=== PATIENT | male | born 1960 | race Caucasian/White ===

== ENCOUNTER 2020-12-31 05:07 | Inpatient (IN) | payer MEDICAID, MEDICARE ==
[~2020-12-31] VITALS: Ht 172.7 cm; Wt 54.5 kg
[~2020-12-31 05:07] MED LIST: ASPI-1450 PO; CHOL100018 PO; ENOX30DI5 SQ; IBUP-2759 PO; OXYC1TAB6 PO; TRAM50TA4 PO
[2020-12-31] MEDS ORDERED: KETOROLAC TROMETHAMINE 30 MG/ML VIAL IVP ONE (06:30)
[2020-12-31] MEDS ORDERED: MORPHINE SULFATE 2 MG/ML SYRINGE IVP ONE (06:30)
[2020-12-31] MEDS ORDERED: LIDOCAINE 5% TRANSDERMAL PATCH TD ONE (06:30)
[2020-12-31] MEDS ORDERED: IOVERSOL 350 MG/ML 100 ML VIAL ONE (06:44)
[2020-12-31] MEDS ORDERED: SODIUM CHLORIDE 0.9% 100 ML ONE (06:44)
[2020-12-31 06:54] LABS: BASOPHILS % (AUTO) 0.8 % (0.0-2.0); EOSINOPHILS % (AUTO) 3.9 % (1.0-6.0); HEMATOCRIT 33.6 % (41-53); HEMOGLOBIN 11.4 g/dL (13.5-17.5); LYMPHOCYTES # (AUTO) 0.7 K/uL (1.0-4.8); LYMPHOCYTES % (AUTO) 7.7 % (22.0-44.0); MEAN CORPUSCULAR HEMOGLOBIN 33.5 pg (26.0-34.0); MEAN CORPUSCULAR HGB CONC 33.9 G/dL (31.0-37.0); MEAN CORPUSCULAR VOLUME 99 fL (80-100); MONOCYTES # (AUTO) 0.8 K/uL (0.1-1.0); MONOCYTES % (AUTO) 8.3 % (2.0-9.0); NEUTROPHILS # (AUTO) 7.7 K/uL (1.8-7.7); NEUTROPHILS % (AUTO) 79.3 % (40.0-70.0); PLATELET COUNT (AUTO) 266 K/uL (150-450)
[2020-12-31 07:09] LABS: ALBUMIN 3.6 g/dL (3.4-5.0); BILIRUBIN,TOTAL 0.6 mg/dL (0.1-1.0); CREATININE 1.25 mg/dL (0.60-1.30); POTASSIUM 4.5 mmol/L (3.5-5.1); TOTAL PROTEIN, SERUM 7.4 g/dL (6.4-8.2)
[2020-12-31 08:41] LABS: COVID AG,FIA SOURCE NASOPHARYNGEAL
[2020-12-31] MEDS ORDERED: ONDANSETRON HCL 4 MG/2 ML VIAL IVP ONE ×2 (10:15→14:00)
[2020-12-31] MEDS ORDERED: MORPHINE SULFATE 4 MG/ML SYRINGE IVP ONE ×2 (10:15→14:00)
[2020-12-31 12:05] LABS: APPEARANCE,URINE CLEAR (CLEAR); BILIRUBIN,URINE NEGATIVE (NEGATIVE); GLUCOSE, URINE (UA) NEGATIVE (NEGATIVE); KETONES,URINE TRACE mg/dL (NEGATIVE); LEUKOCYTE ESTERASE ,URINE NEGATIVE (NEGATIVE); NITRATE,URINE NEGATIVE (NEGATIVE); OCCULT BLOOD,URINE NEGATIVE (NEGATIVE); PH,URINE 5.5 (5.0-8.0); PROTEIN,URINE NEGATIVE (NEGATIVE); UROBILINOGEN,URINE 0.2 mg/dL (<=1.0)
[2020-12-31] MEDS ORDERED: ACETAMINOPHEN 325 MG TABLET PO PRN (12:15)
[2020-12-31] MEDS ORDERED: MAGNESIUM HYDROXIDE SUSPENSION 30 ML UDCUP PO PRN (12:15)
[2020-12-31] MEDS ORDERED: MORPHINE SULFATE 2 MG/ML SYRINGE IVP PRN (12:15)
[2020-12-31] MEDS ORDERED: CHOL-35 PO (12:18)
[2020-12-31 16:00] VITALS: BP 104/71
[2020-12-31] MEDS: HEPARIN SODIUM,PORCINE 5,000 UNITS/ML VIAL SQ SCH ×2 (17:11→23:28)
[2020-12-31] MEDS: NICOTINE 21 MG/24 HOUR PATCH TD SCH (17:11)
[2020-12-31] MEDS: MORPHINE SULFATE 4 MG/ML SYRINGE IVP PRN ×2 (18:26→22:44)
[2020-12-31 19:45] VITALS: BP 105/60
[2020-12-31] MEDS: DOCUSATE SODIUM 100 MG CAPSULE PO SCH (20:04)
[2020-12-31] MEDS: HYDROCODONE/ACETAMINOPHEN 5-325 MG TABLET PO PRN (21:55)
[2020-12-31 22:48] VITALS: BP 118/57
[2020-12-31] MEDS ORDERED: ZOLPIDEM TARTRATE 10 MG TABLET PO PRN (23:15)
[2020-12-31] MEDS: ZOLPIDEM TARTRATE 5 MG TABLET PO PRN (23:26)
[2021-01-01 03:10] VITALS: BP 106/65
[2021-01-01] MEDS: MORPHINE SULFATE 4 MG/ML SYRINGE IVP PRN ×6 (03:16→22:56)
[2021-01-01] MEDS: FAMOTIDINE 20 MG TABLET PO SCH (07:58)
[2021-01-01] MEDS: HEPARIN SODIUM,PORCINE 5,000 UNITS/ML VIAL SQ SCH ×4 (07:58→23:43)
[2021-01-01] MEDS: NICOTINE 21 MG/24 HOUR PATCH TD SCH (07:58)
[2021-01-01] MEDS: DOCUSATE SODIUM 100 MG CAPSULE PO SCH ×2 (07:58→20:19)
[2021-01-01 08:02] VITALS: BP 107/60
[2021-01-01] MEDS: HYDROCODONE/ACETAMINOPHEN 5-325 MG TABLET PO PRN ×3 (08:08→20:21)
[2021-01-01] MEDS: DULoxetine HCL 60 MG CAPSULE PO SCH (09:30)
[2021-01-01] MEDS: MULTIVITAMINS WITH MINERALS, THERAPEUTIC TABLET PO SCH (09:30)
[2021-01-01] MEDS: GABAPENTIN 300 MG CAPSULE PO SCH ×2 (10:45→20:19)
[2021-01-01 12:00] VITALS: BP 124/67
[2021-01-01 19:55] VITALS: BP 113/61
[2021-01-01 22:55] VITALS: BP 110/58
[2021-01-01] MEDS: ZOLPIDEM TARTRATE 5 MG TABLET PO PRN (23:40)
[2021-01-02 03:35] VITALS: BP 107/48
[2021-01-02] MEDS: MORPHINE SULFATE 4 MG/ML SYRINGE IVP PRN ×3 (06:14→13:23)
[2021-01-02 07:51] VITALS: BP 122/62
[2021-01-02] MEDS: HEPARIN SODIUM,PORCINE 5,000 UNITS/ML VIAL SQ SCH ×2 (08:00→16:00)
[2021-01-02] MEDS: MULTIVITAMINS WITH MINERALS, THERAPEUTIC TABLET PO SCH (08:14)
[2021-01-02] MEDS: DOCUSATE SODIUM 100 MG CAPSULE PO SCH (08:14)
[2021-01-02] MEDS: FAMOTIDINE 20 MG TABLET PO SCH (08:14)
[2021-01-02] MEDS: GABAPENTIN 300 MG CAPSULE PO SCH (08:14)
[2021-01-02] MEDS: NICOTINE 21 MG/24 HOUR PATCH TD SCH (08:15)
[2021-01-02] MEDS: HYDROCODONE/ACETAMINOPHEN 5-325 MG TABLET PO PRN ×3 (08:15→16:02)
[2021-01-02] MEDS: DULoxetine HCL 60 MG CAPSULE PO SCH (08:15)
[2021-01-30] MEDS ORDERED: TRAZ150T80 PO (13:41)
== END 2021-01-02 16:30 | disposition hospice, home (50) | DRG 347 ==
LOC: EMS 05:10 → 4E 14:29 → 6N 01-01 16:40
PROVIDERS: ADMIT Internal Medicine; ATTEND Internal Medicine
DX: M84.58XA Pathological fracture in neoplastic disease, other specified site, initial encounter for fracture (principal); C79.9 Secondary malignant neoplasm of unspecified site; E43 Unspecified severe protein-calorie malnutrition; R64 Cachexia; Z68.1 Body mass index [BMI] 19.9 or less, adult; J44.9 Chronic obstructive pulmonary disease, unspecified; F20.9 Schizophrenia, unspecified; R56.9 Unspecified convulsions; Z66 Do not resuscitate; Z51.5 Encounter for palliative care; Z85.89 Personal history of malignant neoplasm of other organs and systems; Z20.822 Contact with and (suspected) exposure to COVID-19
CPT/HCPCS: 71250; 72131; 74177; 80053; 81003; 85025; 99285; G0378; J1644; J1885; J2270; J2405; J7050

== ENCOUNTER 2021-01-30 08:05 | Emergency (ER) | payer MEDICAID ==
[~2021-01-30] VITALS: Ht 172.7 cm; Wt 65.9 kg
[~2021-01-30 08:05] MED LIST changes: -CHOL100018 PO; +CHOL100044 PO; -ENOX30DI5 SQ; -IBUP-2759 PO; -OXYC1TAB6 PO; -TRAM50TA4 PO
[2021-01-30] MEDS ORDERED: GABA-1181 PO (08:24)
[2021-01-30] MEDS ORDERED: SERT-158 PO (08:24)
[2021-01-30] MEDS ORDERED: DEXA2 PO (08:24)
[2021-01-30] MEDS ORDERED: MORP15TA43 PO (08:24)
[2021-01-30] MEDS ORDERED: ONDA-104 PO (08:24)
[2021-01-30] MEDS ORDERED: MORP60TA49 PO (08:24)
[2021-01-30] MEDS ORDERED: TRAZ-257 PO (08:24)
[2021-01-30] MEDS ORDERED: LORA-999 PO (08:24)
[2021-01-30] MEDS ORDERED: ONDANSETRON HCL 4 MG/2 ML VIAL IVP ONE (08:30)
[2021-01-30] MEDS ORDERED: MORPHINE SULFATE 4 MG/ML SYRINGE IVP ONE ×2 (08:30→12:15)
[2021-01-30 08:57] LABS: BASOPHILS % (AUTO) 0.2 % (0.0-2.0); EOSINOPHILS % (AUTO) 0.9 % (1.0-6.0); HEMATOCRIT 34.9 % (41-53); HEMOGLOBIN 11.6 g/dL (13.5-17.5); LYMPHOCYTES # (AUTO) 0.3 K/uL (1.0-4.8); LYMPHOCYTES % (AUTO) 2.4 % (22.0-44.0); MEAN CORPUSCULAR HEMOGLOBIN 32.1 pg (26.0-34.0); MEAN CORPUSCULAR HGB CONC 33.1 G/dL (31.0-37.0); MEAN CORPUSCULAR VOLUME 97 fL (80-100); MONOCYTES % (AUTO) 8.1 % (2.0-9.0); NEUTROPHILS # (AUTO) 10.7 K/uL (1.8-7.7); PLATELET COUNT (AUTO) 214 K/uL (150-450); RED BLOOD CELL COUNT(AUTO) 3.61 MIL/uL (4.50-5.90); RED CELL DISTRIBUTION WIDTH 15.1 % (11.5-14.5)
[2021-01-30 08:59] LABS: NEUTROPHILS % (AUTO) 88.4 % (40.0-70.0)
[2021-01-30 09:05] LABS: ANION GAP 13 mmol/L (8-16); CALCIUM, TOTAL 9.5 mg/dL (8.8-10.5); CARBON DIOXIDE 23 mmol/L (22-29); CHLORIDE 97 mmol/L (98-107); CREATININE 0.98 mg/dL (0.60-1.30); GLOMERULAR FILTR. RATE CALC > 60 mL/min (>60); GLUCOSE,RANDOM 89 mg/dL (70-110); POTASSIUM 3.9 mmol/L (3.5-5.1); SODIUM SERUM 133 mmol/L (136-145); UREA NITROGEN, BLOOD 37 mg/dL (7-18)
[2021-01-30 09:11] LABS: ALANINE AMINOTRANSFERASE 17 U/L (12-78); ALBUMIN 2.9 g/dL (3.4-5.0); ALKALINE PHOSPHATASE 103 U/L (46-116); ASPARTATE AMINOTRANSFERASE 23 U/L (15-37); BILIRUBIN,TOTAL 0.8 mg/dL (0.1-1.0); CREATINE KINASE, TOTAL ONLY 31 U/L (39-308); TOTAL PROTEIN, SERUM 6.3 g/dL (6.4-8.2)
[2021-01-30 09:14] LABS: COVID AG,FIA SOURCE NASOPHARYNGEAL
[2021-01-30] MEDS ORDERED: SODIUM CHLORIDE 0.9% 1,000 ML IV ONE (11:00)
[2021-01-30] MEDS ORDERED: DEXA4 PO (13:41)
[2021-01-30] MEDS ORDERED: MORP15TA70 PO (13:41)
[2021-01-30] MEDS ORDERED: TRAZ150 PO (13:41)
[2021-01-30 15:47] VITALS: BP 110/62
== END 2021-01-30 18:47 | disposition home or self-care (01) ==
LOC: EMS 08:05
DX: C80.1 Malignant (primary) neoplasm, unspecified (principal); G89.29 Other chronic pain; M54.5 Low back pain; F17.210 Nicotine dependence, cigarettes, uncomplicated; Z51.5 Encounter for palliative care; Z79.899 Other long term (current) drug therapy; Z20.822 Contact with and (suspected) exposure to COVID-19
CPT/HCPCS: 36415; 80053; 82550; 85025; 87426; 96361; 96374; 96375; 96376; 99284; J2270; J2405